=== PATIENT | male | born 1950 | race Caucasian/White ===

== ENCOUNTER → 2016-11-19 | Outpatient (CLI) | payer BC | LOC: EXRD 08:33 | DX: Z01.818 Encounter for other preprocedural examination (principal); F17.200 Nicotine dependence, unspecified, uncomplicated; R06.00 Dyspnea, unspecified; Z00.00 Encounter for general adult medical examination without abnormal findings | CPT/HCPCS: 71020 ==

== ENCOUNTER 2021-04-07 19:09 | Emergency (ER) | payer MEDICARE, BC ==
[~2021-04-07 19:09] MED LIST: NORCO 5-325 TA1 EACH PO
[2021-04-07 21:38] LABS: HEMOGLOBIN 15.4 gm/dl (14.0-17.5); RED BLOOD COUNT 4.96 M/UL (4.20-5.50); WHITE BLOOD COUNT 5.5 K/UL (4.5-11.0)
[2021-04-07 22:09] LABS: BUN/CREATININE RATIO 13 (0-10)
== END 2021-04-08 00:23 | disposition home or self-care (01) ==
LOC: ER1 19:09
PROVIDERS: Student in an Organized Health Care Education/Training Program
DX: Z23 Encounter for immunization (principal); U07.1 COVID-19; K21.9 Gastro-esophageal reflux disease without esophagitis; Z90.49 Acquired absence of other specified parts of digestive tract; Z88.2 Allergy status to sulfonamides; F17.210 Nicotine dependence, cigarettes, uncomplicated
CPT/HCPCS: 0240U; 71045; 80053; 82550; 82553; 83874; 84484; 85025; 93005; 99285; M0243

== ENCOUNTER → 2021-06-24 | Outpatient (CLI) | payer MEDICARE, BC | LOC: CT 07:38 | DX: I71.4 Abdominal aortic aneurysm, without rupture (principal); Q61.02 Congenital multiple renal cysts; N28.9 Disorder of kidney and ureter, unspecified; F17.210 Nicotine dependence, cigarettes, uncomplicated | CPT/HCPCS: 36415; 71250; 74170; 82565; Q9967 ==

== ENCOUNTER → 2021-09-09 | Outpatient (CLI) | payer MEDICARE, BC | LOC: EXRD 10:36 | DX: R05.9 Cough, unspecified (principal) | CPT/HCPCS: 71046 ==

== ENCOUNTER → 2022-01-04 | Day surgery (SDC) | payer BC, MEDICARE ==
[~2022-01-04] MED LIST changes: +CRESTOR20 MG PO; +VAZALORE81 MG PO; +VITAMIN D3125 MCG PO; +VITAMIN K2100 MCG PO
== END | disposition home or self-care (01) ==
LOC: OR 05:39
DX: Z12.11 Encounter for screening for malignant neoplasm of colon (principal); D12.3 Benign neoplasm of transverse colon; D12.8 Benign neoplasm of rectum; K57.30 Diverticulosis of large intestine without perforation or abscess without bleeding; I25.10 Atherosclerotic heart disease of native coronary artery without angina pectoris; K21.9 Gastro-esophageal reflux disease without esophagitis; F17.210 Nicotine dependence, cigarettes, uncomplicated; I10 Essential (primary) hypertension; E78.5 Hyperlipidemia, unspecified; Z86.010 Personal history of colon polyps; Z88.2 Allergy status to sulfonamides; Z20.822 Contact with and (suspected) exposure to COVID-19
CPT/HCPCS: J2704